=== PATIENT | female | born 1975 | race Two or more races ===

== ENCOUNTER 2019-03-12 07:51 | Emergency (ER) | payer OTHER ==
[~2019-03-12] VITALS: Ht 154.9 cm; Wt 53.4 kg
[2019-03-12 07:51] VITALS: BP 148/85
[2019-03-12] MEDS ORDERED: ACETAMINOPHEN 500 MG TABLET PO ONE (08:00)
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
[2019-03-12] MEDS ORDERED: MELO7.5T29 PO (08:41)
[2019-03-12] MEDS ORDERED: ORPH-16 PO (08:41)
== END 2019-03-12 08:43 | disposition home or self-care (01) ==
LOC: ER 07:51
DX: S13.4XXA Sprain of ligaments of cervical spine, initial encounter (principal); M25.562 Pain in left knee; M25.552 Pain in left hip; V49.49XA Driver injured in collision with other motor vehicles in traffic accident, initial encounter; Y93.I9 Activity, other involving external motion; Y92.488 Other paved roadways as the place of occurrence of the external cause; Y99.8 Other external cause status
CPT/HCPCS: 72125; 73502; 73562; 81025; 99284